=== PATIENT | female | born 1980 | race Caucasian/White ===

== ENCOUNTER 2024-02-09 11:13 | Emergency (ER) | payer BC, SELFPAY ==
[2024-02-09 11:16] VITALS: BP 145/96
[2024-02-09 11:22] VITALS: BMI 29.2
--- NOTE | 2024-02-09 11:53 | EDRN ---
still waiting for a provider to sign up for the pt and see the pt
--- NOTE | 2024-02-09 12:07 | EDRN ---
Erik BURDEN currently at the pts bedside speaking with the pt
--- NOTE | 2024-02-09 12:27 | EDRN ---
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
[2024-02-09] MEDS: VALIUM 5 MG PO (12:29)
--- NOTE | 2024-02-09 13:02 | ED.GENMED ---
History of Present Illness
General
Chief Complaint: Back Pain
Source: patient
Exam Limitations: none
Time Seen by Provider: 02/09/24 11:57
Nursing documentation reviewed up to this point in time: agreed with
History of Present Illness
History of Present Illness:
43-year-old female past medical history of IBS Lupus anxiety depression presenting to the emergency department today with concerns of ongoing neck discomfort radiation down the left arm and some headache. Had an MRI since the injury and was found
to have herniated disc at C5. Denies any specific numbness weakness changes in vision or additional concerns no fever redness or warmth.
Past History
Past History
ED Past Medical History: Asthma, Fibromyalgia, Psychiatric and Other (Anemia)
ED Past Surgical History: , Gynecological (Tubal ligation) and Orthopedic
Social History
Tobacco: Non-smoker
Alcohol: Occasional
Personal:
Employment: Not employed
Family History
Family History: Hypertension, CAD and Other (Hyperlipidemia)
Review of Systems
Review of Systems
Allergies reviewed?: Yes
All Other Systems: ROS reviewed and negative except as documented in HPI and ROS
Phy Exam
Physical Exam
Physical Exam:
GENERAL: Alert , in no apparent distress
EYE: pupils equal and reactive
NECK: Supple, no significant adenopathy.
ENT: o/p clr, mmm.
CARDIAC: Regular rate and rhythm .
LUNGS: Clear breath sounds bilaterally, no acute respiratory distress, no wheezes/rales/rhonchi
ABDOMEN: Soft, without focal tenderness, no r/g, no cvat
NEUROLOGICAL: Alert and oriented, no focal neuro deficits 5-5 upper and lower extremity strength normal sensation with palpating bilaterally.
SKIN: Warm and dry, skin intact.
MUSCULOSKELETAL: No edema, well perfused.
PSYCH: Normal and appropriate interaction.
Course
Orders/Labs/Results
Orders:
Orders
02/09/24 12:21
Diazepam [Valium] 5 mg PO NOW STA
Vital Signs
Initial and Last Documented VS:
Initial Vital Signs
Temp Pulse Resp BP Pulse Ox
98.2 F 79 16 145/96 98
02/09/24 11:16 02/09/24 11:16 02/09/24 11:16 02/09/24 11:16 02/09/24 11:16
Last Documented Vital Signs
Temp Pulse Resp BP Pulse Ox
98.2 F 72 15 127/76 99
02/09/24 13:03 02/09/24 13:03 02/09/24 13:03 02/09/24 13:03 02/09/24 13:03
MDM/Problems Addressed
MDM/Problems Addressed:
43-year-old female presenting to the emergency department today with concerns of ongoing neck discomfort radiation down the left arm. Here patient is generally well-appearing no signs of emergent issue at this time had previous MRI will need
follow-up with spine doctor for ongoing discomfort. Patient was given ovation for follow-up return precautions given.
*Critical Care Note
Total Time (30-74mins, 75-104mins- exclusive of procedures): Not Applicable
ED Attending Note
-
Portions of this chart may have been created with voice recognition software.� Occasional wrong word or��sound alike� substitutions may have occurred due to the inherent limitations of voice recognition software.
Discharge Plan
Departure
Patient Disposition: Home (Routine Discharge)
Date of Disposition: 02/09/24
Time of Disposition: 13:13
Patient with high blood pressure during this ER visit?: No
Condition: Good
Covid-19: Not Applicable
Discharge Problem:
Neck pain
Instructions: Neck Pain ED
Prescriptions:
New
oxycodone 5 mg tablet
5 mg PO Q8H PRN (Reason: Pain) Qty: 7 0RF
No Action
escitalopram oxalate 20 MG tablet
20 mg PO DAILY
buspirone 10 MG tablet
5 mg PO BID
lorazepam 0.5 MG tablet
0.5 mg PO DAILYPRN PRN (Reason: anxiety)
famotidine 20 MG tablet
20 mg PO BID Qty: 20 0RF
Referrals:
Dior Keith PA [Family Provider] -
Brett Guidry MD [Active] - Follow up in 5-7 days
Activity Restrictions/Additional Instructions:
You came to the emergency department today with concerns of ongoing neck discomfort. Please take the prescribed medication as needed. Please also follow-up with the spine doctor. Return to the emergency department for any worsening, new or
concerning symptoms.
Interventions
Interventions:
*Risk Screen - Suicide Last Done: 02/09/24 11:16
*General Assessment Last Done: 02/09/24 11:16
*Neglect/Abuse Screening Last Done: 02/09/24 11:16
ED- Fall Risk Assessment Last Done: 02/09/24 11:22
*ED COVID-19 Vaccine History Last Done: 02/09/24 11:22
ED-Musculoskeletal Assessment Last Done: 02/09/24 11:22
Discharge Date and Time
Print Language: ANDORRAN
[2024-02-09 13:03] VITALS: BP 127/76
== END 2024-02-09 13:22 | disposition home or self-care (01) ==
LOC: EMR 11:13
PROVIDERS: EMERGENCY PHYSICIAN Emergency Medicine; FAMILY PHYSICIAN Physician Assistant Medical
DX: M54.2 Cervicalgia (principal); K58.9 Irritable bowel syndrome, unspecified; M32.9 Systemic lupus erythematosus, unspecified; F41.8 Other specified anxiety disorders; J45.909 Unspecified asthma, uncomplicated; M79.7 Fibromyalgia; D64.9 Anemia, unspecified; Z82.49 Family history of ischemic heart disease and other diseases of the circulatory system; Z83.438 Family history of other disorder of lipoprotein metabolism and other lipidemia; Z83.49 Family history of other endocrine, nutritional and metabolic diseases; Z98.51 Tubal ligation status
CPT/HCPCS: 99282

== ENCOUNTER 2024-02-11 01:09 | Emergency (ER) | payer BC, SELFPAY ==
[2024-02-11 01:12] VITALS: BP 142/78
--- NOTE | 2024-02-11 04:11 | EDRN ---
Pt fell January 02, had MRI last Monday and says her symptoms are getting worse. Pt has appointment with Maria G Monday morning. Pt says when she lays back she gets nauseous, was nauseous walking to the ED room. Pt has headache. Pt took
oxycodone 5mg at midnight for headache. Pt developed nausea after taking oxycodone and admits she had nothing in her stomach when she took it. Pt says her neck hurts worse than Monday and goes down her L arm and into R shoulder, into head and
back. Pt feels her head is heavy. No photophobia. Pt had blurred vision yesterday but none now.
[2024-02-11 04:17] VITALS: BP 126/87
[2024-02-11] MEDS: TORADOL 60 MG IM (06:40)
[2024-02-11] MEDS: DILAUDID 1 MG IM (06:42)
--- NOTE | 2024-02-11 07:22 | ED.GENMED ---
History of Present Illness
General
Chief Complaint: Musculo-Skeletal Complaint
Source: patient
Exam Limitations: none
Time Seen by Provider: 02/11/24 06:02
History of Present Illness
History of Present Illness:
43-year-old female who presents with persistent pain in her arm. She also states when she lays her head back she gets little bit of pain in the right shoulder as well but also noted to have a headache. She states she fell back in the beginning of
December around January 02. Patient states that the pain seems to be getting worse over the last 1 to 2 weeks. She has an appointment tomorrow with Dr. Guidry.. She states that she just cannot take the pain. She took an oxycodone but also vomited. She
admits she took the oxycodone the stomach. Patient did try Valium while in emergency department in the past. She also has been on steroids without really any improvement. No motor weakness. No lower extremity symptoms. Patient states she just
cannot get comfortable
Past History
Past History
ED Past Medical History: Asthma, Fibromyalgia, Psychiatric and Other (Anemia, lumbar disc disease, cervical disc disease)
ED Past Surgical History: , Gynecological (Tubal ligation) and Orthopedic
Social History
Tobacco: Non-smoker
Alcohol: Occasional
Personal:
Employment: Not employed
Family History
Family History: Hypertension, CAD and Other (Hyperlipidemia)
Phy Exam
Physical Exam
Physical Exam:
CONSTITUTIONAL Patient alert and oriented to person, place and time. Well-appearing. Vital signs reviewed.
HEAD atraumatic, normocephalic.
EYES eyelids normal to inspection, Pupils equally round and reactive to light, Extraocular muscles intact, Conjunctiva normal, Sclera normal.
NECK normal range of motion, Trachea midline, no jugular venous distention.
RESPIRATORY CHEST No respiratory distress noted, Chest expansion equal
BACK normal inspection, no obvious deformities
UPPER EXTREMITY range of motion normal, Motor strength normal, no cyanosis, no edema.
LOWER EXTREMITY range of motion normal, Motor strength normal, no cyanosis, no edema.
NEURO Speech normal, No focal motor deficits, [place] coma scale 15, Memory normal, Cranial Nerves intact to screening exam. Negative Kamron's. No pronator drift
SKIN skin warm, dry, and normal in color.
Course
Orders/Labs/Results
Orders:
Orders
02/11/24 06:29
HYDROmorphone [Dilaudid] 1 mg IM NOW STA
Ketorolac [Toradol] 60 mg IM NOW STA
Vital Signs
Initial and Last Documented VS:
Initial Vital Signs
Temp Pulse Resp BP Pulse Ox
97.8 F 88 22 142/78 97
02/11/24 01:12 02/11/24 01:12 02/11/24 01:12 02/11/24 01:12 02/11/24 01:12
Last Documented Vital Signs
Temp Pulse Resp BP Pulse Ox
97.8 F 66 18 120/70 95
02/11/24 01:12 02/11/24 07:32 02/11/24 07:32 02/11/24 07:32 02/11/24 07:32
MDM/Problems Addressed
MDM/Problems Addressed:
Cervical disc disease, spinal cord impingement
*Pulse Oximetry
Patient hypoxic: no
*Critical Care Note
Total Time (30-74mins, 75-104mins- exclusive of procedures): Not Applicable
Data Reviewed
Review of Other/Old Records Reveals: Radiology Studies (Bilateral L5 spondylolysis cervical disc disc disease with some cord signal around C5 (patient presented the results on her phone))
Source: patient
Prescriptions/Medications Considered But Not Given:
Considered steroids but patient trialed them in the past without improvement
Patient Management
Escalation/DeEscalation of care consider admission/obs:
Patient appears well. Nonfocal exam. Has appoint with spine surgery tomorrow. I think it is reasonable to allow follow-up. Already with oxycodone at home. Zofran for as use
ED Attending Note
-
Portions of this chart may have been created with voice recognition software.� Occasional wrong word or��sound alike� substitutions may have occurred due to the inherent limitations of voice recognition software.
Discharge Plan
Departure
Patient Disposition: Home (Routine Discharge)
Date of Disposition: 02/11/24
Time of Disposition: 07:23
Patient with high blood pressure during this ER visit?: No
Discharge Problem:
Cervical radiculopathy
Instructions: Radiculopathy (DC)
Prescriptions:
New
ondansetron 4 mg tablet,disintegrating
4 mg PO TID PRN (Reason: nausea and vomiting) Qty: 20 0RF
No Action
escitalopram oxalate 20 MG tablet
20 mg PO DAILY
lorazepam 0.5 MG tablet
0.5 mg PO DAILYPRN PRN (Reason: anxiety)
oxycodone 5 mg tablet
5 mg PO Q8H PRN (Reason: Pain) Qty: 7 0RF
ropinirole 0.5 mg Tablet
1.5 mg PO DAILY
gabapentin 300 mg Capsule
600 mg PO HS
hydroxychloroquine 200 mg Tablet
400 mg PO DAILY
bupropion HCl [Wellbutrin XL] 150 mg Tablet Extended Release 24 Hr
300 mg PO DAILY
buspirone 5 mg Tablet
5 mg PO DAILY
Referrals:
Dior Keith PA [Family Provider] -
Activity Restrictions/Additional Instructions:
Please see your doctor tomorrow as planned. Please use oxycodone as discussed but also consider using ibuprofen every 6 hours. Return immediately for upper extremity numbness or weakness. Please return immediately for any lower extremity symptoms.
Interventions
Interventions:
*Risk Screen - Suicide Last Done: 02/11/24 01:12
*General Assessment Last Done: 02/11/24 04:05
*Neglect/Abuse Screening Last Done: 02/11/24 01:12
ED- Fall Risk Assessment Last Done: 02/11/24 04:22
*ED COVID-19 Vaccine History Last Done: 02/11/24 04:05
*Nursing Disposition Last Done: 02/11/24 07:36
ED-Musculoskeletal Assessment Last Done: 02/11/24 04:22
Discharge Date and Time
Discharge Date/Time: 02/11/24 07:36
Print Language: TAIWANESE
[2024-02-11 07:32] VITALS: BP 120/70
== END 2024-02-11 07:36 | disposition home or self-care (01) ==
LOC: EMR 01:09
PROVIDERS: EMERGENCY PHYSICIAN Emergency Medicine; FAMILY PHYSICIAN Physician Assistant Medical
DX: M54.12 Radiculopathy, cervical region (principal); M25.511 Pain in right shoulder; R51.9 Headache, unspecified; R11.10 Vomiting, unspecified; M43.02 Spondylolysis, cervical region; J45.909 Unspecified asthma, uncomplicated; M79.7 Fibromyalgia; D64.9 Anemia, unspecified; Z91.81 History of falling; Z88.2 Allergy status to sulfonamides
CPT/HCPCS: 99284; 96372 ×2

== ENCOUNTER 2024-02-20 14:13 | Emergency (ER) | payer BC, SELFPAY ==
[2024-02-20 14:17] VITALS: BP 141/94
[2024-02-20 14:41] LABS: % Basophils 0.7 % (0-2); % Eosinophils 1.7 % (0-6); % Immature Granulocytes 0.2 % (0-0.5); % Lymphocytes 24.5 % (20.5-51.1); % Monocytes 8.5 % (1.7-9.3); % Neutrophils 64.4 % (42.2-75.2); Absolute Eosinophils 0.1 10^3/uL (0-0.7); Absolute Lymphocytes 1.5 10^3/uL (1.2-3.4); Absolute Monocytes 0.5 10^3/uL (0.1-0.6); Absolute Neutrophils 3.9 10^3/uL (1.4-6.5); Hematocrit 36.6 % (37.0-47.0); Hemoglobin 12.9 g/dL (12.0-16.0); Mean Corp Hgb Conc. 35.2 g/dL (33.0-37.0); Mean Corpuscular Hgb 30.4 pg (27.0-31.0); Mean Corpuscular Volume 86.3 fL (81.0-99.0); Mean Platelet Volume 10.2 fL (7.4-10.4); Nucleated Red Blood Cells % 0 %; Platelet Count 247 10^3/uL (130-400); Red Blood Cell Count 4.24 10^6/uL (4.20-5.40); Red Cell Dist. Width 12.2 % (11.5-14.5)
[2024-02-20 14:55] LABS: D-Dimer 1.52 ug/mlFEU (0.00-0.50)
[2024-02-20 15:00] LABS: ALT (SGPT) < 10 U/L (0-35); AST (SGOT) 20 U/L (14-36); Albumin 4.1 g/dl (3.5-5.0); Alkaline Phosphatase 48 U/L (38-126); Blood Urea Nitrogen 17 mg/dl (7-17); Calcium 9.1 mg/dl (8.4-10.2); Carbon Dioxide 27 mmol/L (22-30); Chloride 100 mmol/L (98-107); Glucose 98 mg/dl (70-99); Potassium 3.9 mmol/L (3.5-5.1); Sodium 136 mmol/L (135-145); Total Bilirubin 1.1 mg/dl (0.2-1.3); Total Protein 6.5 g/dl (6.3-8.2); eGFR > 60.00
[2024-02-20 15:29] VITALS: BMI 37.1
[2024-02-20 15:37] VITALS: BP 131/91
[2024-02-20 16:00] VITALS: BP 128/90
[2024-02-20 17:00] VITALS: BP 121/87
[2024-02-20 18:17] VITALS: BP 131/93
--- NOTE | 2024-02-20 18:50 | ED.GENMED ---
History of Present Illness
General
Chief Complaint: Breathing Problem
Source: patient
Time Seen by Provider: 02/20/24 15:28
History of Present Illness
History of Present Illness:
43-year-old female with a history of recent cervical spine fusion who presents because she felt short of breath over the last 2 to 3 days. Patient states mostly at night. She does report a little bit difficulty swallowing but states it sort of
expected and not more than expected. When she reported to her friend that she felt little short of breath they advised her to come for evaluation. No fevers. No drooling. No swelling.
Past History
Past History
ED Past Medical History: Asthma, Fibromyalgia, Psychiatric and Other (Anemia, lumbar disc disease, cervical disc disease)
ED Past Surgical History: , Gynecological (Tubal ligation) and Orthopedic
Social History
Tobacco: Non-smoker
Alcohol: Occasional
Personal:
Employment: Not employed
Family History
Family History: Hypertension, CAD and Other (Hyperlipidemia)
Phy Exam
Physical Exam
Physical Exam:
CONSTITUTIONAL Patient alert and oriented to person, place and time. Well-appearing. Vital signs reviewed.
HEAD atraumatic, normocephalic.
EYES eyelids normal to inspection, Pupils equally round and reactive to light, Extraocular muscles intact, Conjunctiva normal, Sclera normal.
NECK normal range of motion, Trachea midline, no jugular venous distention. Healing postsurgical wound noted to the anterior left neck. No active bleeding. No drainage. No surrounding redness
RESPIRATORY CHEST No respiratory distress noted, Chest expansion equal, Bilateral breath sounds clear.
CARDIOVASCULAR regular rate and rhythm, Heart sounds normal.
ABDOMEN abdomen nontender, Bowel sounds normal. No distention.
BACK normal inspection, no obvious deformities
UPPER EXTREMITY range of motion normal, Motor strength normal, no cyanosis, no edema.
LOWER EXTREMITY range of motion normal, Motor strength normal, no cyanosis, no edema.
NEURO Speech normal, No focal motor deficits, [place] coma scale 15, Memory normal, Cranial Nerves intact to screening exam.
SKIN skin warm, dry, and normal in color.
PSYCHIATRIC patient oriented to person place and time, Normal affect.
Course
Orders/Labs/Results
Orders:
Orders
02/20/24 14:22
Electrocardiogram (*1) Urgent
Reason for Study: Shortness of Breath
EKG- Treatment ONCE
02/20/24 14:29
CMP [Comprehensive Metabolic Panel] Urgent
Complete Blood Count/With Diff Urgent
D-Dimer Urgent
02/20/24 16:13
CT Chest Pe Study Urgent
Comment:
Reason For Exam: sob, recent surgery (Cervical fusion)
02/20/24 16:19
Test Result ONCE
Abnormal Lab Results
02/20/24
14:29
Hct 36.6 L %
(37.0-47.0)
D-Dimer 1.52 H ug/mlFEU
(0.00-0.50)
Creatinine 1.1 H mg/dL
(0.6-1.0)
02/20/24 14:29
02/20/24 14:29
Vital Signs
Initial and Last Documented VS:
Initial Vital Signs
Pulse Resp BP Pulse Ox
76 16 141/94 100
02/20/24 14:17 02/20/24 14:17 02/20/24 14:17 02/20/24 14:17
Last Documented Vital Signs
Temp Pulse Resp BP Pulse Ox
98.2 F 65 15 131/93 93
02/20/24 15:34 02/20/24 18:33 02/20/24 18:18 02/20/24 18:17 02/20/24 17:39
MDM/Problems Addressed
MDM/Problems Addressed:
Postop dyspnea
*Radiology
Radiology exam reviewed: radiology read reviewed
*Pulse Oximetry
Patient hypoxic: no
*EKG
Interpreted by ED Provider?: Yes
Interpretation: normal
Rate: normal
Rhythm: sinus
[place]: normal axis
Ischemia: no ischemia
*Defense Analyst Interpretation
Rate: normal
Interpretation: normal
Rhythm: sinus
*Critical Care Note
Total Time (30-74mins, 75-104mins- exclusive of procedures): Not Applicable
Data Reviewed
Source: patient
Further Testing Considered But Not Given:
Consider chest x-ray but will proceed with CTA
Patient Management
Escalation/DeEscalation of care consider admission/obs:
CTA negative. Labs unremarkable. Okay for discharge and outpatient follow-up
ED Attending Note
-
Portions of this chart may have been created with voice recognition software.� Occasional wrong word or��sound alike� substitutions may have occurred due to the inherent limitations of voice recognition software.
Discharge Plan
Departure
Patient Disposition: Home (Routine Discharge)
Date of Disposition: 02/20/24
Time of Disposition: 18:51
Patient with high blood pressure during this ER visit?: Yes
Discharge Problem:
Acute dyspnea
Instructions: Shortness of Breath (Dyspnea) (DC)
Prescriptions:
No Action
escitalopram oxalate 20 MG tablet
20 mg PO DAILY
lorazepam 0.5 MG tablet
0.5 mg PO DAILYPRN PRN (Reason: anxiety)
oxycodone 5 mg tablet
5 mg PO Q8H PRN (Reason: Pain) Qty: 7 0RF
ropinirole 0.5 mg Tablet
1.5 mg PO DAILY
gabapentin 300 mg Capsule
600 mg PO HS
hydroxychloroquine 200 mg Tablet
400 mg PO DAILY
bupropion HCl [Wellbutrin XL] 150 mg Tablet Extended Release 24 Hr
300 mg PO DAILY
buspirone 5 mg Tablet
5 mg PO DAILY
ondansetron 4 mg tablet,disintegrating
4 mg PO TID PRN (Reason: nausea and vomiting) Qty: 20 0RF
Referrals:
Benedict Coleman, [Family Provider] -
Activity Restrictions/Additional Instructions:
Please see your doctor in follow-up in next 1 week. Return Kristi for fevers, difficulty swallowing, difficulty breathing or any other concerns.
Interventions
Interventions:
*General Assessment Last Done: 02/20/24 14:17
*ED COVID-19 Vaccine History Last Done: 02/20/24 14:17
ED- Cardiac Assessment Last Done: 02/20/24 15:29
ED- Pulmonary Assessment Last Done: 02/20/24 15:29
Discharge Date and Time
Print Language: FRENCH
== END 2024-02-20 19:01 | disposition home or self-care (01) ==
LOC: EMR 14:13
PROVIDERS: Emergency Medicine; EMERGENCY PHYSICIAN Emergency Medicine; FAMILY PHYSICIAN Family Medicine
DX: R06.09 Other forms of dyspnea (principal); R13.10 Dysphagia, unspecified; R03.0 Elevated blood-pressure reading, without diagnosis of hypertension; M79.7 Fibromyalgia; M50.90 Cervical disc disorder, unspecified, unspecified cervical region; J45.909 Unspecified asthma, uncomplicated; D64.9 Anemia, unspecified; Z98.890 Other specified postprocedural states; M43.22 Fusion of spine, cervical region; Z88.2 Allergy status to sulfonamides
CPT/HCPCS: 99285; 71275; 80053; 85025; 85379; 93005; Q9967

== ENCOUNTER → 2024-10-29 08:17 | Outpatient (REF) | payer BC, SELFPAY ==
[2024-10-29 09:16] LABS: % Basophils 0.7 % (0-2); % Eosinophils 2.5 % (0-6); % Immature Granulocytes 0.2 % (0-0.5); % Lymphocytes 25.6 % (20.5-51.1); % Monocytes 9.4 % (1.7-9.3); % Neutrophils 61.6 % (42.2-75.2); Absolute Eosinophils 0.1 10^3/uL (0-0.7); Absolute Lymphocytes 1.1 10^3/uL (1.2-3.4); Absolute Monocytes 0.4 10^3/uL (0.1-0.6); Absolute Neutrophils 2.8 10^3/uL (1.4-6.5); Hematocrit 38.3 % (37.0-47.0); Hemoglobin 13.3 g/dL (12.0-16.0); Mean Corp Hgb Conc. 34.7 g/dL (33.0-37.0); Mean Corpuscular Hgb 30.7 pg (27.0-31.0); Mean Corpuscular Volume 88.5 fL (81.0-99.0); Mean Platelet Volume 10.5 fL (7.4-10.4); Nucleated Red Blood Cells % 0 %; Platelet Count 223 10^3/uL (130-400); Red Blood Cell Count 4.33 10^6/uL (4.20-5.40); Red Cell Dist. Width 12.1 % (11.5-14.5); White Blood Cell Count 4.5 10^3/uL (4.8-10.8)
[2024-10-29 09:27] LABS: Urine Albumin 1+ (Neg - Trace); Urine Bilirubin Negative (Negative); Urine Character Clear (Clear); Urine Color Yellow; Urine Glucose Negative (Negative); Urine Ketone Negative (Negative); Urine Leukocyte Negative (Negative); Urine Nitrite Negative (Negative); Urine Occult Blood 1+ (Negative); Urine Specific Gravity 1.015 (<1.030); Urine Urobilinogen Negative (Neg - 1+)
[2024-10-29 10:05] LABS: Urine Squamous Cell >30 /LPF (Few)
[2024-10-29 10:06] LABS: Urine Amorphous Seen
[2024-10-29 10:08] LABS: Urine Red Blood Cell 0-2 /HPF (0-2)
[2024-10-29 10:09] LABS: Urine Bacteria Few (Negative); Urine White Cell 0-2 /HPF (0-5)
[2024-10-29 10:24] LABS: Protein/creatinine Ratio 0.1; Urine Protein 6 mg/dl
[2024-10-29 10:36] LABS: C-Reactive Protein < 5.00 mg/L (0.0-10.00)
[2024-10-29 10:42] LABS: ALT (SGPT) 14 U/L (0-35); AST (SGOT) 25 U/L (14-36); Albumin 4.7 g/dl (3.5-5.0); Alkaline Phosphatase 43 U/L (38-126); Blood Urea Nitrogen 15 mg/dl (7-17); Calcium 9.2 mg/dl (8.4-10.2); Carbon Dioxide 26 mmol/L (22-30); Chloride 104 mmol/L (98-107); Glucose 90 mg/dl (70-99); Potassium 4.4 mmol/L (3.5-5.1); Sodium 140 mmol/L (135-145); Total Bilirubin 1.1 mg/dl (0.2-1.3); Total Protein 7.1 g/dl (6.3-8.2); eGFR > 60.00
[2024-10-29 10:55] LABS: Erythrocyte Sed Rate 6 mm/hour (0-20)
[2024-10-29 11:11] LABS: Hepatitis B Surface Antigen Negative (Negative)
[2024-10-29 11:29] LABS: Hepatitis B Core Ab, Total Negative (Negative)
[2024-10-30 12:47] LABS: Complement Act., Total (CH50) 47.7 U/mL (38.7-89.9)
[2024-10-30 15:33] LABS: Vitamin D 1,25 Dihydroxy 42.3 pg/mL (19.9-79.3)
[2024-10-30 16:23] LABS: Glu-6-Phosphate Dehydrogenase 9.5 U/g Hb (9.9-16.6)
[2024-10-30 23:36] LABS: Complement C3 104 mg/dl (88-165)
[2024-10-31 01:35] LABS: ANA, IgG Reflex to HEp-2 Detected (None Detected)
[2024-10-31 06:07] LABS: Quantiferon Mitogen minus NIL 9.93 IU/mL; Quantiferon NIL 0.08 IU/mL; Quantiferon TB Gold Plus Negative (Negative)
[2024-10-31 09:22] LABS: Myeloperoxidase Antibody 0 AU/mL (0-19); Serine Protease-3, IgG 0 AU/mL (0-19)
== END ==
LOC: RAD 08:17
PROVIDERS: ATTENDING PHYSICIAN Student in an Organized Health Care Education/Training Program; FAMILY PHYSICIAN Student in an Organized Health Care Education/Training Program
DX: M54.50 Low back pain, unspecified (principal); M79.7 Fibromyalgia; R31.29 Other microscopic hematuria; R53.82 Chronic fatigue, unspecified; R76.8 Other specified abnormal immunological findings in serum; Z15.89 Genetic susceptibility to other disease; Z98.1 Arthrodesis status
CPT/HCPCS: 36415; 73120; 80053; 81003; 81015; 82570; 82652; 82955; 83516; 84156; 85025; 85652; 86038; 86039; 86140; 86160; 86162; 86480; 86704; 87340